=== PATIENT | male | born 1960 | race Caucasian/White ===

== ENCOUNTER 2018-03-25 07:07 | Observation (INO) ==
[2018-03-25] MEDS ORDERED: ASPIRIN PO ONE (07:24)
--- NOTE | 2018-03-25 07:35 | PROVIDER DOCUMENTATION ---
HPI-Chest Pain - General Chief Complaint: Chest Pain Stated Complaint: SOB/CHEST PAINS Time Seen by Provider: 03/25/18 07:28 Source: patient Allergies/Adverse Reactions: Patient Allergies Allergy/AdvReac Type Severity Reaction Status Date / Time No Known Allergies Allergy Verified 03/25/18 07:23 Home Medications: Home Medication List Medication Instructions Recorded Confirmed Last Taken Type Losartan/Hydrochlorothiazide 1 each PO DAILY 05/27/17 05/31/17 05/31/17 07:00 History [Losartan-Hctz 100-12.5 mg Tab] Hydrocodone/Acetaminophen [[place] 1 each PO Q6H PRN PRN #10 tablet 05/30/1705/3105/31/17 07:00 Rx 10-325 Tablet] Promethazine [Phenergan] 25 mg PO Q6H PRN PRN #5 tablet 05/30/17 05/31/17 Unknown Rx Clindamycin [Cleocin] 300 mg PO Q6HR #40 cap 05/31/17 Unknown Rx Cephalexin [Keflex] 500 mg PO BID 10 Days #20 cap 10/06/17 Unknown Rx - History of Present Illness-CP Nature of Presenting Problem: Pt reports lt sided chest pain for the last 2-3 hrs that woke him up last night. He has hx of htn and smoking with family hx of heart disease. Location: reports: other (lt chest) Chest Pain Radiation: reports: no radiation Quality of Pain: reports: pressure Severity in ED: moderate Onset/Duration: 1-3 hours ago Timing: constant Context/Activities at Onset: reports: sleep Modifying Factors: improves with: rest Associated Symptoms: reports: nausea, shortness of breath Nitro Today/Relief: no nitro taken today Aspirin Treatment Today: no aspirin today Prior Chest Pain/Cardiac Workup: reports: no prior chest pain Similar Symptoms Previously?: No Recently Seen Here or By Another Healthcare Provider: No Review of Systems - Adult - REVIEW OF SYSTEMS - ADULT Constitutional: reports: no symptoms reported, see HPI Eyes: reports: no symptoms reported, see HPI Ears, Nose, Mouth & Throat: reports: no symptoms reported, see HPI Cardiovascular: reports: see HPI, chest pain Respiratory: reports: no symptoms reported, see HPI Gastrointestinal: reports: no symptoms reported, see HPI Genitourinary: reports: no symptoms reported, see HPI Musculoskeletal: reports: no symptoms reported, see HPI Integumentary: reports: no symptoms reported, see HPI Neurological: reports: no symptoms reported, see HPI Psychiatric: reports: no symptoms reported, see HPI Endocrine: reports: no symptoms reported, see HPI Hematologic/Lymphatic: reports: no symptoms reported, see HPI Allergic/Immunologic: reports: no symptoms reported, see HPI All Other Systems: Reviewed and Negative Past History - Adult - PAST MEDICAL HISTORY-ADULT Review of Records: reports: Old Records Reviewed, Nursing Assessment Review, Medications Reviewed Major Childhood Illnesses: reports: denies history Cardiovascular: reports: HTN Respiratory: reports: sleep apnea Gastrointestinal: reports: denies history Obstetrical/Gynecological: reports: denies history Genitourinary: reports: denies history Musculoskeletal: reports: denies history Neurological: reports: denies history Psychiatric: reports: denies history Endocrine/Immune: reports: denies history Other Conditions: reports: denies history - PRIOR SURGERIES/PROCEDURES Surgical/Procedure History: reports: reviewed, not pertinent - IMMUNIZATION STATUS Childhood Immunizations: See Nurse Assessment Flu Vaccine: See Nurse Assessment - FAMILY HISTORY Family History: reviewed, not pertinent Physical Exam-General - PHYSICAL EXAM-ADULT Initial Vital Signs Reviewed: Yes - CONSTITUTIONAL General Appearance: appears well, alert, no apparent distress - EYES Eyes: PERRL/EOMI - HEAD, EARS, NOSE, MOUTH & THROAT HENMT: normocephalic/atraumatic, moist mucous membranes - NECK Neck: non-tender, full range of motion, supple, normal inspection - RESPIRATORY Respiratory: chest non-tender, lungs clear, normal breath sounds, no pleuratic chest pain, no respiratory distress, no accessory muscle use - CARDIOVASCULAR Cardiovascular: normal peripheral pulses, regular rate, rhythm, no edema, no gallop, no JVD, no murmur - GASTROINTESTINAL (ABDOMEN) Abdominal Exam: normal bowel sounds, non tender, soft, no organomegaly, no pulsatile mass - LYMPHATIC Lymphatic: no adenopathy - MUSCULOSKELETAL Back Exam: normal inspection, no CVA tenderness, no vertebral tenderness Extremity: normal range of motion, non-tender, normal gait, normal inspection - SKIN Integumentary: normal color, normal turgor, warm/dry - 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, grossly normal, no motor/sensory deficits - PSYCHIATRIC Psych/Mental Status: normal mood/affect, normal thought content, normal thought process, oriented x 3 - HEART Score HEART Score: History: Highly Suspicious HEART Score: ECG: Non-Specific Repolarization Disturbance/LBBB/PM HEART Score: Age: 45-65 Years HEART Score: Risk Factors for Atherosclerotic Disease: > or = 3 Risk Factors or History of Atherosclerotic Disease HEART Score: Troponin: < or = Normal Limit Total HEART Score:: 6 Progress - PLAN OF CARE/RESULTS Progress/Plan/Lab Results: Vital Signs - 8 hr 03/25/18 07:16 03/25/18 07:56 03/25/18 09:40 Pulse Rate 90 77 75 Respiratory Rate 20 16 25 H Blood Pressure 175/109 175/84 175/88 O2 Sat by Pulse Oximetry 94 L 93 L 93 L Laboratory Results - last 24 hr 03/25/18 03/25/18 03/25/18 07:25 07:25 07:25 WBC 6.15 RBC 5.07 Hgb 14.2 Hct 41.8 L MCV 82.4 MCH 28.0 MCHC 34.0 RDW Std Deviation 13.6 Plt Count 247 MPV 9.7 Immature Gran % (Auto) 0.3 Neut % (Auto) 81.0 H Lymph % (Auto) 9.1 L [place] % (Auto) 7.6 Eos % (Auto) 1.5 Baso % (Auto) 0.5 Immature Gran # (Auto) 0.02 Neut # (Auto) 4.98 Lymph # (Auto) 0.56 L [place] # (Auto) 0.47 Eos # (Auto) 0.09 Baso # (Auto) 0.03 PT INR PTT (Actin FS) Sodium 133 L Potassium 3.7 Chloride 97 L Carbon Dioxide 25 Anion Gap 11 BUN 9 Creatinine 0.9 Estimated GFR/1.73 m2 > 60 BUN/Creatinine Ratio 10 Glucose 110 H Calculated Osmolality 266 Calcium 9.1 Total Bilirubin 1.10 H AST 20 ALT 20 Alkaline Phosphatase 65 Creatine Kinase 837 H Creatine Kinase Index 1.2 CK-MB (CK-2) 9.64 H Troponin T Ceq-Z-Hitshwgidco Pept 241 H Total Protein 7.3 Albumin 4.1 Globulin 3.0 Albumin/Globulin Ratio 1.0 03/25/18 03/25/18 07:25 07:25 WBC RBC Hgb Hct MCV MCH MCHC RDW Std Deviation Plt Count MPV Immature Gran % (Auto) Neut % (Auto) Lymph % (Auto) [place] % (Auto) Eos % (Auto) Baso % (Auto) Immature Gran # (Auto) Neut # (Auto) Lymph # (Auto) [place] # (Auto) Eos # (Auto) Baso # (Auto) PT 14.9 INR 1.11 PTT (Actin FS) 36.5 Sodium Potassium Chloride Carbon Dioxide Anion Gap BUN Creatinine Estimated GFR/1.73 m2 BUN/Creatinine Ratio Glucose Calculated Osmolality Calcium Total Bilirubin AST ALT Alkaline Phosphatase Creatine Kinase Creatine Kinase Index CK-MB (CK-2) Troponin T < 0.010 Sya-D-Zdenirntwtt Pept Total Protein Albumin Globulin Albumin/Globulin Ratio Orders Category Date Time Status Cardiac Monitoring DIRECTED Care 03/25/18 07:25 Active Oxygen Therapy- ED Nursing DIRECTED Care 03/25/18 07:25 Active Saline Loc NOW Care 03/25/18 07:25 Active CHEST-2 VIEWS [RAD] Stat Exams 03/25/18 07:25 Completed CBC WITH ELECTRONIC DIFF [HEME] Stat Lab 03/25/18 07:25 Completed CK PROFILE [SP CHEM] Stat Lab 03/25/18 07:25 Completed COMPREHENSIVE METABOLIC PANEL [CHEM] Stat Lab 03/25/18 07:25 Completed PRO B-NATRIURETIC PEPTIDE Stat Lab 03/25/18 07:25 Completed PROTIME WITH INR [COAG] Stat Lab 03/25/18 07:25 Completed PTT [COAG] Stat Lab 03/25/18 07:25 Completed TROPONIN T Stat Lab 03/25/18 07:25 Completed Aspirin Med 03/25/18 07:24 Discontinued 325 mg PO NOW ONE Nitroglycerin Sl [Nitroglycerin] Med 03/25/18 09:51 Active 0.4 mg SL Q5M PRN PRN CP/SOB/Palp >45 yrs of Age Stat Oth 03/25/18 07:24 Ordered EKG [EKG] Stat Ther 03/25/18 07:25 Draft At recheck pt noted that his symptoms were improved with meds in the Er. Pt agrees to be admitted. Result Diagrams: 03/25/18 07:25 03/25/18 07:25 - EKG 1 Time of EKG reading by physician:: 10:11 EKG Read and Signed by:: Ward Castrejon EKG Interpretation (*Must complete 3 of following elements*): Abnormal Rate: 72 [place]: normal QRS: normal [place] Interval: normal ST Wave: non-specific ST changes Prior EKG Comparison: no prior EKG - CONSULTS/PCP/HOSPITALIST Notification #1 *Consult/PCP/Hospitalist*: Dr Camp Time Discussed: 10:12 Reason/Comments: Agreed to admit Consult Disposition: Admit Departure - Departure Date of Disposition Decision: 03/25/18 Time of Disposition Decision: 10:13 DIAGNOSIS: Chest pain, HTN (hypertension) Disposition: ADMITTED INPATIENT 09 Certified Medical Emergency: Emergent Condition: Fair Referrals and Follow-Ups: None,PCP [Primary Care Provider] - - Critical Care Note This patient required my direct & personal management of CC.: No Attestation - Physician/ HEATH Attestation Patient care was provided by Advanced Practice Provider:: No The physician spent face to face time with patient:: Yes Advanced Practice Provider documentation review:: Supervising physician onsite and consulted in the evaluation and care of this patient. The physician did have a face to face encounter with the patient.
--- NOTE | 2018-03-25 07:45 | Diag Imaging Result Doc PS360 ---
EXAM: CHEST-2 VIEWS INDICATION: CP TECHNIQUE: 2 views COMPARISON: 12/22/2014 FINDINGS: There is a stable calcified granuloma at the left lung base. The lungs are grossly clear. There is no discrete pleural fluid collection or pneumothorax. The cardiomediastinal silhouette and central vasculature are grossly unremarkable. IMPRESSION: No evidence of acute pathology by plain radiograph. Electronically signed by Frederick Newsome 03/25/2018 7:43 AM
[2018-03-25 07:49] LABS: BASO# 0.03 X1000 (0.0-0.2); BASO% 0.5 % (0.0-0.8); EOS# 0.09 X1000 (0.0-0.7); EOS% 1.5 % (0.0-10.0); HEMATOCRIT 41.8 % (42.0-52.0); HEMOGLOBIN 14.2 g/dL (14.0-18.0); IMM GRAN# 0.02 X1000 (0.0-0.04); IMM GRAN% 0.3 % (0.0-0.5); LYMPH# 0.56 X1000 (1.2-3.4); LYMPH% 9.1 % (20.5-51.1); MCV 82.4 FL (81-99); MONO# 0.47 X1000 (0.11-0.59); MONO% 7.6 % (1.7-9.3); MPV 9.7 FL (7.4-10.4); NEUT# 4.98 X1000 (1.4-6.5); PLT 247 X1000 (130-400); RBC 5.07 XMIL (4.7-6.1); RDW 13.6 % (11.5-14.5); WBC 6.15 X1000 (4.8-10.8)
--- NOTE | 2018-03-25 08:09 | EKG Report ---
Test Performed on : 03/25/2018 07:10:34 AM Test Reason : KH Blood Pressure : / mmHG Vent. Rate : 072 BPM Atrial Rate : 072 BPM P-R Int : 168 ms QRS Dur : 114 ms QT Int : 396 ms P-R-T Axes : 074 -06 080 degrees QTc Int : 433 ms Normal sinus rhythm. Nonspecific T wave abnormality Abnormal ECG When compared with ECG of 27-MAY-2017 10:32, Nonspecific T wave abnormality, worse in Lateral leads Unconfirmed Result
[2018-03-25 08:12] LABS: AGAP 11; ALBUMIN 4.1 g/dL (3.5-5.0); ALKALINE PHOSPHATASE 65 U/L (32-122); BUN 9 mg/dL (8-22); CALCIUM 9.1 mg/dL (8.8-10.2); CHLORIDE 97 mmol/L (98-107); COSMO 266; CREATININE 0.9 mg/dL (0.7-1.2); ESTIMATED GFR > 60; GLUCOSE 110 mg/dL (70-104); GOT 20 U/L (10-34); GPT 20 U/L (10-44); POTASSIUM 3.7 mmol/L (3.5-5.1); SODIUM 133 mmol/L (136-145); TCO2 25 mmol/L (25-35); TOTAL PROTEIN 7.3 g/dL (6.3-8.3)
[2018-03-25 08:29] LABS: CK PROFILE 837 U/L (24-204)
[2018-03-25 08:34] LABS: INR 1.11; PROTIME 14.9 Seconds (11.0-16.0)
[2018-03-25 08:35] LABS: PTT 36.5 Seconds (22.3-41.8)
[2018-03-25 08:49] LABS: CK INDEX 1.2 (0.0-2.5); CK-MB 9.64 ng/mL (0.0-5.0)
[2018-03-25] MEDS ORDERED: NITROGLYCERIN SL PRN (09:51)
[2018-03-25] MEDS ORDERED: NS 1,000 ML IV ONE (12:21)
[2018-03-25] MEDS ORDERED: TYLENOL PO PRN (12:21)
[2018-03-25] MEDS ORDERED: ZOFRAN IV PRN (12:21)
[2018-03-25 12:56] LABS: CK INDEX 0.9 (0.0-2.5); CK-MB 7.53 ng/mL (0.0-5.0)
[2018-03-25 16:32] LABS: CK INDEX 0.7 (0.0-2.5); CK-MB 6.11 ng/mL (0.0-5.0)
[2018-03-25 19:09] LABS: INFLUENZA A NEGATIVE (NEGATIVE); INFLUENZA B NEGATIVE (NEGATIVE)
[2018-03-25] MEDS ORDERED: DUONEB (A & A) INH PRN (21:22)
[2018-03-25] MEDS ORDERED: ROBITUSSIN-AC PO PRN (21:23)
[2018-03-25] MEDS ORDERED: APRESOLINE IV PRN (21:24)
[2018-03-25 21:25] LABS: CK INDEX 0.4 (0.0-2.5); CK-MB 5.22 ng/mL (0.0-5.0)
[2018-03-25] MEDS ORDERED: ROCEPHIN 1 GM in NS 50 ML IV SCH (21:30)
[2018-03-25] MEDS: DUONEB (A & A) INH SCH (21:48)
[2018-03-26] MEDS: COZAAR PO SCH ×2 (00:22→08:35)
[2018-03-26] MEDS: HYDROCHLOROTHIAZIDE PO SCH ×2 (00:23→08:35)
--- NOTE | 2018-03-26 00:25 | HISTORY AND PHYSICAL ---
HISTORY OF PRESENT ILLNESS: This is a 57-year-old white male who presents from home with chest pain and fever. He has had cough and congestion for the last 12 to 24 hours. The patient reports chest pain, history of hypertension, smoking, but he reports an episode yesterday he kind of work through work with it and then went home. He had a recurrent episode. I think he fell off the bed. I do not think he passed up, but he fell off the bed and had issues with that. The patient had a Heart score of around 6, so they felt that he needed to be admitted. He has no history of CAD. 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 He does smoke. He does potentially have family history, his mother had CAD but she did have issues until her 70s, so that is not technically a risk factor. EKG was nonspecific. Troponin was negative. He does not take aspirin, so his risk factors are really just hypertension and smoking. His story is suspicious, but then he also describes fever, so I would say at best it is moderately suspicious. I would say his heart score is a less than 6, and the EKG was unrevealing, and his cardiac enzyme is negative. PAST MEDICAL HISTORY: Again, hypertension. PAST SURGICAL HISTORY: Negative. FAMILY HISTORY: Mother had CAD, but again, in her 70s. SOCIAL HISTORY: He smokes half a pack to a pack a day. He works as a maintenance gentleman at an apartment complex. ALLERGIES: No known drug allergies. MEDICATIONS: He takes losartan-hydrochlorothiazide 100-12.5 daily. REVIEW OF SYSTEMS: Negative times a 10-point review of systems. PHYSICAL EXAM: VITAL SIGNS: Blood pressure is 157/71, heart rate of 101, respiratory rate 20, temperature 100.2 degrees, 96% on 2 L. CARDIOVASCULAR: Regular rate and rhythm. PULMONARY: Bilateral breath sounds clear to auscultation. GASTROINTESTINAL: Soft, nontender, nondistended. Bowel sounds are positive. EXTREMITY: No clubbing or cyanosis. LYMPHATIC: No peripheral edema. NEUROLOGICAL: Nonfocal. MUSCULOSKELETAL: 4/5 in all 4 extremities. HEENT: His upper airway exam, he had congestion, injected sclerae, nasal voice. LABORATORY DATA: CBC okay. Coag's okay. Sodium was okay. Creatine kinase up a bit and troponin was 0.01. Influenza test was negative, which was got belatedly. Chest x-ray clear. EKG showed nonspecific changes. ASSESSMENT: 1. A 57-year-old male with history of possible chest pain, who presents from home. In any case, he was placed in Observation for chest pain. He does have risk factors of smoking, hypertension, and his age relatively so, but no family history. We will observe him, telemetry, and monitor him tomorrow. Pursue myocardial perfusion scan and follow closely. 2. Hypertension. We will continue to monitor closely. 3. Low-grade fevers. I am still concerned he may have some component of bronchitis. He was flu negative though, so we will see how he does. cc: Ty Camp MD
[2018-03-26] MEDS: DUONEB (A & A) INH SCH ×3 (03:04→15:29)
[2018-03-26 06:29] LABS: BASO# 0.04 X1000 (0.0-0.2); BASO% 0.9 % (0.0-0.8); EOS# 0.04 X1000 (0.0-0.7); EOS% 0.9 % (0.0-10.0); HEMATOCRIT 42.7 % (42.0-52.0); HEMOGLOBIN 13.9 g/dL (14.0-18.0); IMM GRAN# 0.01 X1000 (0.0-0.04); IMM GRAN% 0.2 % (0.0-0.5); LYMPH# 0.83 X1000 (1.2-3.4); LYMPH% 18.8 % (20.5-51.1); MCH 27.1 PG (27-31); MCHC 32.6 g/dL (33-37); MCV 83.2 FL (81-99); MONO# 0.78 X1000 (0.11-0.59); MONO% 17.7 % (1.7-9.3); MPV 9.6 FL (7.4-10.4); NEUT# 2.71 X1000 (1.4-6.5); NEUT% 61.5 % (42.2-75.2); PLT 214 X1000 (130-400); RBC 5.13 XMIL (4.7-6.1); RDW 13.8 % (11.5-14.5); WBC 4.41 X1000 (4.8-10.8)
--- NOTE | 2018-03-26 06:29 | EKG Report ---
Test Performed on : 03/26/2018 06:06:45 AM Test Reason : cp Blood Pressure : / mmHG Vent. Rate : 067 BPM Atrial Rate : 067 BPM P-R Int : 158 ms QRS Dur : 098 ms QT Int : 456 ms P-R-T Axes : 058 008 072 degrees QTc Int : 481 ms Normal sinus rhythm. with sinus arrhythmia. Nonspecific ST and T wave abnormality Prolonged QT Abnormal ECG When compared with ECG of 25-MAR-2018 07:10, (Unconfirmed) T wave inversion less evident in Lateral leads Confirmed by Sharath Lee MD ([id number]) on 03/27/2018 7:12:09 AM
[2018-03-26 06:40] LABS: AGAP 13; BUN 9 mg/dL (8-22); CALCIUM 8.8 mg/dL (8.8-10.2); CHLORIDE 100 mmol/L (98-107); COSMO 274; CREATININE 0.9 mg/dL (0.7-1.2); ESTIMATED GFR > 60; GLUCOSE 93 mg/dL (70-104); POTASSIUM 3.6 mmol/L (3.5-5.1); SODIUM 138 mmol/L (136-145); TCO2 26 mmol/L (25-35)
[2018-03-26 07:50] VITALS: BP 157/69
[2018-03-26] MEDS ORDERED: HYDROCHLOROTHIAZIDE PO SCH (09:00)
[2018-03-26] MEDS ORDERED: COZAAR PO SCH (09:00)
[2018-03-26] MEDS ORDERED: PNEUMOVAX 23 IM ONE (09:00)
[2018-03-26] MEDS ORDERED: LEXISCAN ONE (11:18)
--- NOTE | 2018-03-26 11:36 | GRADED EXERCISE REPORT ---
DATE: 03/26/2018 PROCEDURE: Lexiscan, EKG portion. INDICATION: Chest pain DESCRIPTION OF PROCEDURE: The patient underwent Lexiscan per protocol. Baseline EKG showed nonspecific changes, possibly inferior changes, and was negative. He was administered 0.4 mg of Lexiscan. He did not have any chest pain during the test. There was no evidence of electrographic ischemic changes. Resting heart rate 56, maximum heart rate 87. Resting blood pressure 148/75. Peak blood pressure 149/76. The test was felt to be clinically and electrically negative. Myocardial perfusion reported separately. cc: Ty Camp MD
--- NOTE | 2018-03-26 14:31 | Diag Imaging Result Document ---
PROCEDURE NAME: MYOCARDIAL PERF SCAN, STR/REST - 03/26/2018 SUMMARY: The patient was administered 17.0 mCi of technetium 99-m sestamibi after which resting cardiac images were obtained. The patient was subsequently administered Lexiscan 0.4 mg intravenously, after which the heart rate went from 56 beats per minute to 78 beats per minute. The blood pressure went from 148/75 to 129/67. With Lexiscan, the patient denied chest discomfort. Following the administration of Lexiscan, the patient was administered. 47.0 mCi of technetium-99m sestamibi, after which gated stress cardiac images were obtained. Baseline ECG demonstrates sinus bradycardia and nonspecific T-wave abnormality. With Lexiscan, there were no diagnostic ST-segment changes. SPECT images were reconstructed in the short, horizontal, and vertical long axis. Review of these images demonstrated a large moderate perfusion defect involving the entire inferior wall with stress images which appear similar on resting images. No significant reversibility is evident. Gated images demonstrate calculated left ventricular ejection fraction of 54% with symmetrical wall motion/thickening. CONCLUSIONS: 1. Adequate response to Lexiscan. 2. Clinically negative for chest pain. 3. Electrocardiographically negative for Lexiscan-induced myocardial ischemia. 4. Lexiscan sestamibi images demonstrate large fixed moderate perfusion defect in the inferior wall with preserved regional wall motion. This is likely due to dense diaphragm attenuation artifact in this obese individual. However, prior nontransmural inferior infarction cannot be excluded. There is no scintigraphic evidence of inducible myocardial ischemia. Normal left ventricular systolic function demonstrated. cc: MD Ty Allen MD
--- NOTE | 2018-03-27 05:13 | DISCHARGE SUMMARY ---
ADMISSION DATE: 03/25/2018 DISCHARGE DATE: 03/26/2018 CONSULTATION DURING THIS ADMISSION: None. IMAGING STUDIES OF SIGNIFICANCE: A chest x-ray shows no evidence of acute pathology. A stress test was unremarkable for any inducible myocardial ischemia. ADMISSION DIAGNOSES: 1. Chest pain. 2. Hypertension. 3. Low-grade fevers. DIAGNOSES AT THE TIME OF DISCHARGE: 1. Acute bronchitis. 2. Chronic smoker with evidence suspicious for chronic obstructive pulmonary disease. 3. Suspected obstructive sleep apnea. 4. Hypertension. 5. Morbid obesity with body mass index of 49.3. DISCHARGE MEDICATIONS: 1. Losartan/HCTZ. 2. Erythromycin 250 p.o. daily. 3. Prednisone 20 mg p.o. daily for 5 days. 4. [*] FOLLOWUP: Dr. Mcknight and patient's PCP. PRESENTING COMPLAINT: Chest pain, fever, cough, and nasal congestion. HISTORY OF PRESENTING COMPLAINT: Mr. Bazzi is a 57-year-old morbidly obese, gentleman with a history of hypertension, smoking, came to the emergency department because of some nasal congestion, fever, and chest discomfort. The patient was admitted for further medical evaluation. HOSPITAL COURSE: The patient was admitted to the medical floor. A chest x-ray did not show any consolidation. However, with her symptoms, it was deemed that Mr. Bazzi could have acute bronchitis, so was started on antibiotics, and she did not have any more fever because of his chest pain and his risk factors, a stress test was done which was negative. Throughout the hospital course, Mr. Bazzi continues to feel better. Shortness of breath got improved, and did not have any more fever. Today, he refers to feel a lot better. His troponins have been trended 4 times, and they are all negative. Stress test is also negative. His CBC has been reviewed and unremarkable. Mr. Bzazi is, therefore, stable for discharge. He has been advised to follow up with his primary care doctor. At the time of discharge, his blood pressure was 157/69, pulse is 64, respirations 20, temperature 98.0. He is not having any more chest pain. He has been advised to follow up with Pulmonary Medicine, to do pulmonary function tests on outpatient basis, to rule out the possibility of an underlying COPD. The patient is also advised to follow up with sleep studies to rule out any obstructive sleep apnea. All the discharge instructions have been discussed with Mr. Bazzi, and he voices understanding. There was no family member by his bedside at the time of the discharge instructions. TIME SPENT FOR DISCHARGE: 37 minutes. cc: Reji Pearson MD
== END 2018-03-26 16:00 | disposition home or self-care (01) ==
LOC: P.ED 07:07 → P.MEDSURG 07:07 → SUATTDRO 11:36
PROVIDERS: ATTEND Internal Medicine
CPT/HCPCS: 36415; 71020; 71046; 78452; 80048; 80053; 82550; 82553; 82948; 83880; 84484; 85025; 85610; 85730; 87275; 87276; 87804; 93005; 93010; 93017; 94640; 99285; A9270; A9500; J0360; J0696; J2785; J7030; XXXXX